=== PATIENT | female | born 1990 | race Caucasian/White ===

== ENCOUNTER → 2017-06-21 | Outpatient (CLI) | payer MEDICAID | LOC: CIMAGING 10:13 | PROVIDERS: ATTEND Orthopaedic Surgery Foot and Ankle Surgery | DX: S92.102D Unspecified fracture of left talus, subsequent encounter for fracture with routine healing (principal); M19.072 Primary osteoarthritis, left ankle and foot | CPT/HCPCS: 73700-PO ==